=== PATIENT | female | born 1990 | race Caucasian/White ===

== ENCOUNTER 2024-05-12 17:28 | Emergency (ER) | payer OTHER, SELFPAY ==
[2024-05-12 17:35] VITALS: BP 116/59; PULSE 85; RESP 20; TEMP 36.4; O2SAT 99
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
[2024-05-12] MEDS: HYDROcodone/acetaminophen (*CRX) 5-325 MG TABLET 1 TAB PO (19:36)
[2024-05-12 19:48] VITALS: BP 120/86; PULSE 72; RESP 16; TEMP 36.6; O2SAT 98
== END 2024-05-12 19:49 | disposition home or self-care (01) ==
PROVIDERS: Emergency Provider Student in an Organized Health Care Education/Training Program
DX: S19.9XXA Unspecified injury of neck, initial encounter (principal); V49.40XA Driver injured in collision with unspecified motor vehicles in traffic accident, initial encounter; F17.200 Nicotine dependence, unspecified, uncomplicated
CPT/HCPCS: 99283; A9270